=== PATIENT | male | born 1960 | race Caucasian/White ===

== ENCOUNTER → 2021-01-07 | Outpatient (CLI) | payer BC ==
[2021-01-07 21:32] LABS: Dermato. farinae IgE 0.65 kU/L
[2021-01-07 21:33] LABS: Cat Epith & Dander IgE 0.99 kU/L; Dog Dander IgE <0.10 kU/L
[2021-01-07 21:34] LABS: Cladosporian herbarum IgE 0.32 kU/L; Cockroach IgE <0.10 kU/L
[2021-01-07 21:35] LABS: Alternaria alternata IgE <0.10 kU/L; Aspergillus fumagatus IgE <0.10 kU/L
[2021-01-07 21:36] LABS: Birch IgE 9.66 kU/L; Maple (Box Elder) IgE 0.44 kU/L
[2021-01-07 21:37] LABS: Elm IgE 0.11 kU/L; Oak IgE <0.10 kU/L
[2021-01-07 21:38] LABS: Red Top (Bentgrass) IgE 6.43 kU/L
== END | disposition home or self-care (01) ==
LOC: LABWHC1 10:55
PROVIDERS: ATTEND Internal Medicine Critical Care Medicine
DX: J45.901 Unspecified asthma with (acute) exacerbation (principal)
CPT/HCPCS: 36415; 82785; 85008; 86003

== ENCOUNTER 2021-01-16 08:22 | Emergency (ER) | payer BC ==
[2021-01-16] MEDS ORDERED: ORPHENADRINE 30 MG/ML 2 ML VIAL IVP STA (08:43)
[2021-01-16] MEDS ORDERED: diphenhydrAMINE 50 MG/ML 1 ML VIAL IVP STA (08:43)
[2021-01-16] MEDS ORDERED: METOCLOPRAMIDE 5 MG/ML 2 ML VIAL IVP STA (08:43)
--- NOTE | 2021-01-16 09:07 | ED ---
Headache HPI - General Chief Complaint: Headache Stated Complaint: headache Time Seen by Provider: 01/16/21 08:29 Source: patient, RN notes reviewed Mode of arrival: ambulatory Limitations: no limitations - History of Present Illness Initial Comments: 60-year-old male presents emergency from chief complaint of a headache 8 days. Patient states he was started on prednisone when the symptoms started. He states his placed on prednisone for asthma by Dr. Dobson. He states he started having headaches, focal balance, nausea, fever, general is not feeling well. He was tapered off. Patient denies any current chest pain or shortness breath no focal weakness he states he is just tired from having this headache. He has tried some Tylenol Motrin. He did try his 's Imitrex no relief. He states he has pressure behind his eyes with no visual disturbances. Does not take any blood thinners denies any other - Related Data Previous Rx's Medication Instructions Recorded Butalb/APAP/Caff 50-325-40Mg 1 tab PO Q4H PRN #10 tablet 01/16/21 [Fioricet 50-325-40] Allergies Allergy/AdvReac Type Severity Reaction Status Date / Time No Known Allergies Allergy Verified 01/16/21 08:28 Review of Systems ROS Statement: Those systems with pertinent positive or pertinent negative responses have been documented in the HPI. ROS Other: All systems not noted in ROS Statement are negative. Past Medical History Past Medical History: Asthma History of Any Multi-Drug Resistant Organisms: None Reported Additional Past Surgical History / Comment(s): septalplasty Past Psychological History: No Psychological Hx Reported Smoking Status: Never smoker Past Alcohol Use History: Daily Past Drug Use History: None Reported General Exam Limitations: no limitations General appearance: alert, in no apparent distress Head exam: Present: atraumatic, normocephalic, normal inspection Eye exam: Present: normal appearance, PERRL, EOMI. Absent: scleral icterus, conjunctival injection, periorbital swelling ENT exam: Present: normal exam, normal oropharynx, mucous membranes moist, TM's normal bilaterally Neck exam: Present: normal inspection, full ROM. Absent: tenderness, meningismus, lymphadenopathy Respiratory exam: Present: normal lung sounds bilaterally. Absent: respiratory distress, wheezes, rales, rhonchi, stridor Cardiovascular Exam: Present: regular rate, normal rhythm, normal heart sounds. Absent: systolic murmur, diastolic murmur, rubs, gallop, clicks Neurological exam: Present: alert, oriented X3, CN II-XII intact, reflexes normal. Absent: motor sensory deficit Skin exam: Present: warm, dry, intact, normal color. Absent: rash Course Vital Signs 01/16/21 08:25 Temperature 98.7 F Pulse Rate 91 Respiratory 18 Rate Blood Pressure 137/87 O2 Sat by Pulse 99 Oximetry Medical Decision Making - Medical Decision Making Patient's presented for headache [address] was performed hourly is neurologically intact with no red flag symptoms. Patient lab scenario any significant abnormalities headache is improving. Patient feels comfortable discharged and return parameters were discussed. - Lab Data Result diagrams: 01/16/21 09:03 01/16/21 09:03 Lab Results 01/16/21 01/16/21 Range/Units 09:03 09:03 WBC 8.8 (3.8-10.6) k/uL RBC 4.57 (4.30-5.90) m/uL Hgb 15.0 (13.0-17.5) gm/dL Hct 44.8 (39.0-53.0) % MCV 98.0 (80.0-100.0) fL MCH 32.9 (25.0-35.0) pg MCHC 33.6 (31.0-37.0) g/dL RDW 12.8 (11.5-15.5) % Plt Count 153 (150-450) k/uL MPV 7.3 Neutrophils % 80 % Lymphocytes % 12 % Monocytes % 5 % Eosinophils % 1 % Basophils % 1 % Neutrophils # 7.0 (1.3-7.7) k/uL Lymphocytes # 1.1 (1.0-4.8) k/uL Monocytes # 0.4 (0-1.0) k/uL Eosinophils # 0.1 (0-0.7) k/uL Basophils # 0.1 (0-0.2) k/uL Sodium 136 L (137-145) mmol/L Potassium 4.2 (3.5-5.1) mmol/L Chloride 105 (98-107) mmol/L Carbon Dioxide 28 (22-30) mmol/L Anion Gap 3 mmol/L BUN 13 (9-20) mg/dL Creatinine 0.86 (0.66-1.25) mg/dL Est GFR (CKD-EPI)AfAm >90 (>60 ml/min/1.73 sqM) Est GFR (CKD-EPI)NonAf >90 (>60 ml/min/1.73 sqM) Glucose 110 H (74-99) mg/dL Calcium 8.7 (8.4-10.2) mg/dL Total Bilirubin 0.7 (0.2-1.3) mg/dL AST 69 H (17-59) U/L ALT 107 H (4-49) U/L Alkaline Phosphatase 81 (38-126) U/L Total Protein 5.9 L (6.3-8.2) g/dL Albumin 3.3 L (3.5-5.0) g/dL Disposition Clinical Impression: Headache Disposition: HOME SELF-CARE Condition: Stable Instructions (If sedation given, give patient instructions): Acute Headache (ED) Additional Instructions: Please return to the Emergency Department if symptoms worsen or any other concerns. Prescriptions: Butalb/APAP/Caff 50-325-40Mg [Fioricet 50-325-40] 1 tab PO Q4H PRN #10 tablet PRN Reason: Headache Is patient prescribed a controlled substance at d/c from ED?: No Referrals: Chalo Strauss MD [Primary Care Provider] - 1-2 days Time of Disposition: 11:16
[2021-01-16 09:10] LABS: Basophils # (A) 0.1 k/uL (0-0.2); Basophils % (A) 1 %; Eosinophils # (A) 0.1 k/uL (0-0.7); Eosinophils % (A) 1 %; HCT 44.8 % (39.0-53.0); Lymphocytes # (A) 1.1 k/uL (1.0-4.8); Lymphocytes % (A) 12 %; MCH 32.9 pg (25.0-35.0); MCHC 33.6 g/dL (31.0-37.0); Mean Platelet Volume 7.3; Monocytes # (A) 0.4 k/uL (0-1.0); Monocytes % (A) 5 %; Neutrophils % (A) 80 %; Platelet Count 153 k/uL (150-450); RBC 4.57 m/uL (4.30-5.90); RDW 12.8 % (11.5-15.5); WBC 8.8 k/uL (3.8-10.6)
[2021-01-16 09:22] LABS: ALT 107 U/L (4-49); AST 69 U/L (17-59); African American GFR (CKD) >90 (>60 ml/min/1.73 sqM); Albumin 3.3 g/dL (3.5-5.0); Alkaline Phosphatase 81 U/L (38-126); Anion Gap 3 mmol/L; Blood Urea Nitrogen 13 mg/dL (9-20); Calcium 8.7 mg/dL (8.4-10.2); Carbon Dioxide 28 mmol/L (22-30); Chloride 105 mmol/L (98-107); Glucose 110 mg/dL (74-99); Non-African American GFR(CKD) >90 (>60 ml/min/1.73 sqM); Potassium 4.2 mmol/L (3.5-5.1); Sodium 136 mmol/L (137-145); Total Bilirubin 0.7 mg/dL (0.2-1.3); Total Protein 5.9 g/dL (6.3-8.2)
--- NOTE | 2021-01-16 10:20 | CT ---
EXAMINATION TYPE: CT brain wo con DATE OF EXAM: 01/16/2021 COMPARISON: None HISTORY: Headache TECHNIQUE: CT scan of the head without contrast CT DLP: 1102.4 mGycm Automated exposure control for dose reduction was used. FINDINGS: No evidence of acute intracranial hemorrhage midline shift or mass effect. Rollins-white matter differentiation is preserved. CSF spaces and ventricles are normal in configuration. Posterior fossa is unremarkable. No acute osseous, orbital or soft tissue abnormality. Paranasal sinuses and mastoid air cells are aerated. IMPRESSION: NO EVIDENCE OF ACUTE INTRACRANIAL ABNORMALITY.
[2021-01-16] MEDS ORDERED: KETOROLAC 15 MG/ML 1 ML VIAL IVP STA (10:43)
[2021-01-16] MEDS ORDERED: BUTALB/APAP/CAFF 50-325-40MG TAB PO STA (11:14)
[2021-01-16 11:54] VITALS: BP 128/78; PULSE 78; RESP 16; TEMP 98.2
== END 2021-01-16 11:53 | disposition home or self-care (01) ==
LOC: EC 08:22
DX: R51.9 Headache, unspecified (principal); J45.909 Unspecified asthma, uncomplicated
CPT/HCPCS: 36415; 70450; 80053; 85025; 96374; 96375; 99284

== ENCOUNTER 2023-07-13 13:25 | Day surgery (SDC) | payer BC ==
[~2023-07-13 13:25] MED LIST: LACTATED RINGERS 1,000 ML IV SCH
[2023-07-13] MEDS ORDERED: LACTATED RINGERS 1,000 ML IV ONE (14:40)
[2023-07-13 14:47] VITALS: TEMP 98.4
[2023-07-13] MEDS ORDERED: PROPOFOL 10 MG/ML 20 ML VIAL IV ONE (15:43)
--- NOTE | 2023-07-13 16:01 | P.PCN ---
Date of Procedure: 07/13/23 Procedure(s) Performed: BRIEF HISTORY: Patient is a 63-year-old pleasant white male scheduled for an elective colonoscopy as a part of screening for colon cancer and family history of colon cancer. His sister was diagnosed with colon cancer at age 58. PROCEDURE PERFORMED: Colonoscopy snare polypectomy. PREOPERATIVE DIAGNOSIS: Screening for colon cancer and family history of colon cancer. IV sedation per Anesthesia. PROCEDURE: After informed consent was obtained, the patient, was brought into the endoscopy unit. IV sedation was administered by Anesthesia under continuous monitoring. Digital rectal examination was normal. Initially the Olympus CF-160 flexible video colonoscope was then inserted in the rectum, gradually advanced into the cecum without any difficulty. Careful examination was performed as the scope was gradually being withdrawn. Ileocecal valve and the appendiceal orifice were visualized and appeared normal. Prep was excellent. Mucosa of the cecum, ascending colon, appeared normal. In the hepatic flexure there was a 5 mm polyp that was removed by cold snare polypectomy. In the distal transverse colon there was another 5 mm polyp that was removed by cold snare polypectomy. Rest of the transverse colon, descending colon, sigmoid colon, and rectum appeared normal. Scattered sigmoid diverticulosis. Retroflexion was performed in the rectum and no lesions were seen. The patient tolerated the procedure well. IMPRESSION: 5 mm hepatic flexure polyp status post polypectomy 5 mm transverse colon polyp status post snare polypectomy Scattered sigmoid diverticulosis RECOMMENDATIONS: Findings of this examination were discussed with the patient as his family.. He was advised to follow with the biopsy results and have a repeat colonoscopy in 5 years because of family history of colon cancer
[2023-07-13 16:21] VITALS: BP 126/86; PULSE 89; RESP 14
== END 2023-07-13 16:33 | disposition home or self-care (01) ==
LOC: ORWHC2ENDO 13:25
PROVIDERS: ATTEND Internal Medicine Gastroenterology
DX: Z12.11 Encounter for screening for malignant neoplasm of colon (principal); D12.3 Benign neoplasm of transverse colon; K57.30 Diverticulosis of large intestine without perforation or abscess without bleeding; F32.A Depression, unspecified; J45.909 Unspecified asthma, uncomplicated; Z79.899 Other long term (current) drug therapy; Z87.891 Personal history of nicotine dependence; Z80.0 Family history of malignant neoplasm of digestive organs; Z98.890 Other specified postprocedural states
CPT/HCPCS: 45385; 88305; J2704